=== PATIENT | female | born 1945 | race Two or more races ===

== ENCOUNTER 2024-01-27 17:22 | Inpatient (IN) | payer OTHER ==
[~2024-01-27] VITALS: Ht 149.9 cm; Wt 66.4 kg
--- NOTE | 2024-01-27 18:19 | ED.PDOC ---
History of Present Illness HPI Comments 78-year-old female brought in by EMS presents with a chief complaint of generalized weakness x4 days with associated diarrhea and hypotension. Patient states that she has been feeling weak to the point where she can not walk and can not sit up. Patient says she also has had diarrhea for the last 4 days rou ghly 4 times a day. Patient was hypotensive upon arrival at 103/46. Patient denies any falls or trauma prior to onset of symptoms. There are no other symptoms or modifying factors present at this time. 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 Family History Family History: Reviewed,noncontributory to illness Social History Smoker: Non-Smoker Alcohol: Denies ETOH Use Drugs: Denies Drug Use Lives In: Home Constitutional: reports: weakness; denies: chills, diaphoresis, fatigue, fever, malaise, sweats, others EENTM: denies: blurred vision, double vision, ear bleeding, ear discharge, ear drainage, ear pain, ear ringing, eye pain, eye redness, hearing loss, mouth pain, mouth swelling, nasal discharge, nose bleeding, nose congestion, nose pa in, photophobia, tearing, throat pain, throat swelling, voice changes, others Respiratory: denies: cough, hemoptysis, orthopnea, SOB at rest, shortness of breath, SOB with excertion, stridor, wheezing, others Cardiovascular: reports: others (Hypotension); denies: chest pain, dizzy spells, diaphoresis, Dyspnea on exertion, edema, irregular heart beat, left arm pain, lightheadedness, palpitations, PND, syncope Gastrointestinal: reports: diarrhea; denies: abdomen distended, abdominal pain, blood streaked bowels, constipated, dysphagia, difficulty swallowing, hematemesis, melena, nausea, poor appetite, poor fluid intake, rectal bleeding, rectal pain, vomiting, others Genitourinary: denies: abnormal vagina bleeding, burning, dyspareunia, dysuria, flank pain, frequency, hematuria, incontinence, pain, , vagina discharge, urgency, others Neurological: denies: dizziness, fainting, headache, left sided numbness, left sided weakness, numbness, paresthesia, pre-existing deficit, right sided numbness, right sided weakness, seizure, speech problems, tingling, tremors, weakness, others Musculoskeletal: denies: back pain, gout, joint pain, joint swelling, muscle pain, muscle stiffness, neck pain, others Integumetry: denies: bruises, change in color, change in hair/nails, dryness, laceration, lesions, lumps, rash, wounds, others Allergic/Immunocompromised: denies: Difficulty Healing, Frequent Infections, Hives, Itching, others Hematologic/Lymphatic: denies: anemia, blood clots, easy bleeding, easy bruising, swollen glands, others Endocrine: denies: excessive hunger, excessive sweating, excessive thirst, excessive urination, flushing, intolerance to cold, intolerance to heat, unexplained weight gain, unexplained weight loss, others Psychiatric: denies: anxiety, bipolar disorder, depression, hopeless, panic disorder, schizophrenia, sleepless, suicidal, others All Other Systems: Reviewed and Negative Physical Exam General Appearance: No Apparent Distress, Obese, Other (Chronic Ill Appearing ) HEENT: Normal ENT Inspection, Pharynx Normal, TMs Normal Neck: Full Range of Motion, Non-Tender, Normal, Normal Inspection Respiratory: Chest Non-Tender, Lungs Clear, No Accessory Muscle Use, No Respiratory Distress, Normal Breath Sounds Cardiovascular: No Edema, No JVD, No Murmur, No Gallop, Normal Peripheral Pulses, Regular Rate/Rhythm Breast Exam: Deferred Gastrointestinal: No Organomegaly, Non Tender, No Pulsatile Mass, Normal Bowel Sounds, Soft Genitalia: Deferred Pelvic: Deferred Rectal: Deferred Extremities: No calf tenderness, Normal capillary refill, Normal inspection, Normal range of motion, Non-tender, No pedal edema Musculoskeletal : Apperance: Normal Neurologic: Alert, spindle maker II-XII nml as Tested, No Motor Deficits, Normal Affect, Normal Mood, No Sensory Deficits Cerebellar Function: Normal Reflexes: Normal Skin: Dry, Normal Color, Warm Lymphatic: No Adenopathy Was a procedure done? Was a procedure done?: No Differential Dx Considerations may include: Electrolyte abnormality, ACS, pneumonia, viral syndrome, gastroenteritis, dehydration X-Ray, Labs, Meds, VS Vital Signs Date Time Temp Pulse Resp B/P (MAP) Pulse Ox O2 Delivery O2 Flow Rate FiO2 01/27/24 18:15 97.8 71 14 97/45 (62) 98 97.8 01/27/24 18:15 Room Air* 0 21 01/27/24 17:42 97.8 73 16 101/51 (68) 97 Lab Test 01/27/24 19:38 01/27/24 18:36 Range/Units Troponin I High Sensitivity Pending 27 </=34 ng/L White Blood Count 4.5 4.4-10.8 10^3/uL Red Blood Count 3.40 L 4.0-5.20 10^6/uL Hemoglobin 10.4 L 12.2-16.2 g/dL Hematocrit 31.4 L 36.0-46.0 % Mean Corpuscular Volume 92.4 80.0-100.0 fL Mean Corpuscular Hemoglobin 30.6 28.0-32.0 pg Mean Corpuscular Hemoglobin Concent 33.1 32.0-36.0 g/dL Red Cell Distribution Width 14.2 11.8-14.3 % Platelet Count 193 140-450 10^3/uL Mean Platelet Volume 8.3 6.9-10.8 fL Neutrophils (%) (Auto) 79.0 37.0-80.0 % Lymphocytes (%) (Auto) 9.3 L 10.0-50.0 % Monocytes (%) (Auto) 10.8 0.0-12.0 % Eosinophils (%) (Auto) 0.5 0.0-7.0 % Basophils (%) (Auto) 0.4 0.0-2.0 % Neutrophils # (Auto) 3.6 1.6-8.6 10 ^3/uL Lymphocytes # (Auto) 0.4 0.4-5.4 10 ^3/uL Monocytes # (Auto) 0.5 0-1.3 10 ^3/uL Eosinophils # (Auto) 0 0-0.8 10 ^3/uL Basophils # (Auto) 0 0-0.2 10 ^3/uL Nucleated Red Blood Cells 0.1 % Sodium Level 135 L 136-145 mmol/L Potassium Level 3.6 3.5-5.1 mmol/L Chloride Level 102 98-107 mmol/L Carbon Dioxide Level 24 20-31 mmol/L Anion Gap 9 5-15 Blood Urea Nitrogen 35 H 9-23 mg/dL Creatinine 1.02 0.550-1.02 mg/dL Glomerular Filtration Rate Calc 56 >90 mL/min BUN/Creatinine Ratio 34.3 H 10.0-20.0 Serum Glucose 100 74-106 mg/dL Calcium Level 9.2 8.7-10.4 mg/dL Current Medications Medications (Trade) Dose Ordered Sig/Liset Route Start Time Stop Time Status Last Admin Sodium Chloride 1,000 ml @ 1,000 mls/hr Q1H ONCE IV 01/27/24 18:30 01/27/24 19:29 DC 01/27/24 18:34 Time of 1ST Reevaluation: 18:44 Reevaluation 1ST: Unchanged Patient Education/Counseling: Diagnosis, Treatment, Prognosis Family Education/Counseling: No Family Present Departure 1 Departure Time of Disposition: 19:48 (Patient presented with acute shortness of breath concerning for acute on chronic COPD Exacerbation, Pneumonia, ACS, CHF, Pneumothorax. Less likely PE, Dissection. Patient does not appear septic at this time.Data: 1. I ordered and reviewed the result of at least 3 labs in cluding a CBC, BMP, and Troponin. 2. I independently interpreted the following tests: Chest X-ray shows a pneumonia.Risk:This patient has a high risk of morbidity due to further diagnostic testing or treatment and may suffer from respiratory or cardiac etiology . Workup reveals a pneumonia, patient will be started on antibiotics, admitted for further workup and possible expert cons ultation.) Impression: Primary Impression: Pneumonia Qualified Codes: J18.9 - Pneumonia, unspecified organism Additional Impressions: Diarrhea Qualified Codes: R19.7 - Diarrhea, unspecified Generalized weakness Disposition: ADMITTED INPATIENT Admit to: Med Surg Condition: Serious Critical Care Note Critical Care Time?: Yes Critical care comment: Acute shortness of breath Authorized and Performed by: Fani Bui MD Total critical care time: Approximately 33 minutes Due to a high probability of clinically significant, life threatening deterioration, the patient required my highest level of preparedness to intervene emergently and I personally spent this critical care time directly and personally managing the patient. This critical care time included obtaining a history; examining the patient; pulse oximetry; ordering and review of studies; arranging urgent treatment with development of a management plan; evaluation of patient's response to treatment; frequent reassessment; and, discussions with other providers. This critical care time was performed to assess and manage the high probability of imminent, life-threatening deterioration that could result in multi-organ failure. It was exclusive of separately billable procedures and treating other patients and teaching time. Please see my other sections and the rest of the note for further information on patient assessment and treatment. Stability Stability form required: No I personally scribed for FANI BUI MD ([email or web address]) on 01/27/24 at 18:19. Electronically submitted by Marco Perez ([email or web address]). FANI BUI MD Jan 27, 2024 18:19
[2024-01-27] MEDS: SODIUM CHLORIDE 0.9% 1,000 ML IV ONE (18:34)
--- NOTE | 2024-01-27 18:42 | DVH ---
CHEST RADIOGRAPH Indication: weakness Technique: Single frontal view of the chest was obtained Comparison: None FINDINGS: Lines and Tubes: None Lungs: Minimal bilateral lower lung zone opacities. Pleura: No effusion. No pneumothorax. Cardiomediastinal contours: Unremarkable Bones: No acute osseous abnormality. IMPRESSION: Bilateral lower lung zone atelectasis/pneumonia.
[2024-01-27 19:05] LABS: Chloride 102 mmol/L (98-107); Potassium 3.6 mmol/L (3.5-5.1)
[2024-01-27 19:06] LABS: Anion Gap 9 (5-15); Carbon Dioxide 24 mmol/L (20-31)
[2024-01-27 19:07] LABS: Calcium 9.2 mg/dL (8.7-10.4)
[2024-01-27 19:11] LABS: Glucose 100 mg/dL (74-106); Sodium 135 mmol/L (136-145)
[2024-01-27 19:12] LABS: BUN/Creatinine Ratio 34.3 (10.0-20.0)
[2024-01-27 19:14] LABS: Blood Urea Nitrogen 35 mg/dL (9-23)
[2024-01-27 19:23] LABS: Basophils # (auto) 0 10 ^3/uL (0-0.2); Basophils % (auto) 0.4 % (0.0-2.0); Eosinophils # (auto) 0 10 ^3/uL (0-0.8); Eosinophils % (auto) 0.5 % (0.0-7.0); Hematocrit 31.4 % (36.0-46.0); Hemoglobin 10.4 g/dL (12.2-16.2); Lymphocytes # (auto) 0.4 10 ^3/uL (0.4-5.4); Lymphocytes % (auto) 9.3 % (10.0-50.0); Mean Corpuscular Hemoglobin 30.6 pg (28.0-32.0); Mean Corpuscular Hgb Conc. 33.1 g/dL (32.0-36.0); Mean Corpuscular Volume 92.4 fL (80.0-100.0); Monocytes # (auto) 0.5 10 ^3/uL (0-1.3); Monocytes % (auto) 10.8 % (0.0-12.0); Neutrophils # (auto) 3.6 10 ^3/uL (1.6-8.6); Nucleated Red Blood Cells % 0.1 %; Platelet Count (auto) 193 10^3/uL (140-450); Red Cell Distribution Width 14.2 % (11.8-14.3); White Blood Cell 4.5 10^3/uL (4.4-10.8)
[2024-01-27 19:30] VITALS: PULSE 66; RESP 15
[2024-01-27] MEDS: AZITHROMYCIN 250 MG TAB PO ONE (20:39)
[2024-01-27] MEDS: VANCOMYCIN 1GM/250ML KIT 200 ML IV ONE (20:43)
--- NOTE | 2024-01-27 21:42 | DVH ---
Exam: CT CT AB PEL WITH IV CON ONLY History: abdominal pain Comparison Study: None available at time of dictation. TECHNIQUE: Multidetector CT of the abdomen and pelvis with contrast. Axial, coronal and sagittal mult iplanar reformats were obtained from the axial data set by the technologist. Radiation Dose Information: CT Dose: CTDI volume is 12.97 mGy. Dose-length product is 646 mGy*cm FINDINGS: Bibasilar atelectasis. Partially visualized heart is unremarkable. Status post cholecystectomy. Minimal intrahepatic biliary ductal dilatation. Mild dilatation of the common bile duct measuring up to 12 mm of the pancreatic head. Liver, spleen, and adrenal glands unre markable. Moderate atrophy of the pancreas. Bilateral renal cysts, largest on the right measuring up to 3.1 cm and largest on the left measuring up to 1.4 cm. Additional subcentimeter hypodense bilateral renal lesions are noted that are too small to characterize. Ureters and urinary bladder are unremarkable. Uterus and adnexa are unremarkable. Postsurgical changes of gastric bypass. Mild gastric wall thickening which may be due to inadequate d istention. Small bowel loops are unremarkable. Appendix is not definitely visualized. Small to modera te amount of fecal material within the colon. No evidence of intraperitoneal free air or free fluid. No evidence of aortic aneurysm or dissection. Moderate atherosclerotic calcification of the aorta an d bilateral iliacs. No significant lymphadenopathy. Partially visualized fluid collection of the left lateral hip and proximal femur subcutaneous fat magy suring about 5 x 7.3 cm in AP and transverse diameters and at least 8 cm in cranial caudal diameter w ith the distal end outside the [id number]. There appears to be prior postsurgical changes of the midline ventral abdomen. Minimal soft tissue e jessie. There is diffuse demineralization. No destructive osseous lesions are noted. IMPRESSION: Mild gastric wall thickening which may be due to inadequate distention with gastritis not excluded . Postsurgical changes of gastric bypass. Status post cholecystectomy with mild extrahepatic dilatation up to 12 mm of the pancreatic head mini mal intrahepatic biliary ductal dilatation. Bilateral renal cysts with additional subcentimeter hypodense bilateral renal lesions that are too sm all to characterize. Inadequately assessed fluid collection within the subcutaneous fat of the left hip and proximal femur with the distal end outside the [id number] measuring at least 5 x 7.3 x 8 cm
[2024-01-27] MEDS: CEFEPIME 2GM/50ML NS 50 ML IV ONE (22:21)
[2024-01-27] MEDS ORDERED: DOCUSATE SOD 100 MG CAP PO PRN (23:15)
[2024-01-27] MEDS ORDERED: ONDANSETRON HCL 4 MG/2 ML VIAL IV PRN (23:15)
[2024-01-27] MEDS ORDERED: NITROGLYCERIN 0.4 MG SL TAB SL PRN (23:15)
[2024-01-27] MEDS ORDERED: ACETAMINOPHEN 325 MG TAB PO PRN (23:15)
[2024-01-27] MEDS ORDERED: MORPHINE SULFATE INJ 2 MG/ml SYRG IV PRN (23:15)
[2024-01-28] MEDS: IOHEXOL 300 MG/ML 100ML BOTTLE IJ ONE (00:44)
[2024-01-28] MEDS: SODIUM CHLORIDE 0.9% 1,000 ML IV SCH (00:45)
[2024-01-28 01:29] LABS: COVID19 ANTIGEN SOFIA FIA NEGATIVE (NEGATIVE); Rapid Influenza A Negative (Negative); Rapid Influenza B Negative (Negative)
[2024-01-28] MEDS ORDERED: DEXTROSE (50%) 50ML SYRG IV PRN (01:45)
--- NOTE | 2024-01-28 02:18 | DVHHP2 ---
NILAM MCCRAY HEEL CUTTER 01/28/24 0218: History of Present Illness Reason for Visit: Generalized weakness History of Present Illness 78-year-old female with past medical history DM, hypertension, VT, bowel perforation repair dcd on 12/31/23 Presents with complaints of generalized weakness and diarrhea times four days. Patient states she is unable to sit up And having difficulty Walking. States she normally ambulates using her fww. On a arrival to the emergency department the patient is noted to be mildly hypotensive 101/51 and 97/45. Patient denies fevers, chills, recent sick contacts, shortness of breath, chest pain, palpitations, Nausea, vomiting, Abdominal pain, hematemesis, hematochezia, melena. Cardiovascular: VT TRAFFIC CONTROL SUPERVISOR: TIA Endocrine: Diabetes Smoke: No ALCOHOL: none Drugs: None Review of Systems Constitutional: Yes: Weakness, Malaise; No: Fever, Chills, Sweats, Other Eyes: No: Pain, Vision change, Conjunctivae inflammation, Eyelid inflammation, Other, Redness ENT: No: Ear pain, Ear discharge, Nose pain, Nose discharge, Nose congestion, Mouth pain, Mouth swelling, Throat pain, Throat swelling, Other Respiratory: No: Cough, Dry, Shortness of breath, SOB with excertion, Wheezing, Hemoptysis, Pleuritic Pain, Sputum, Wheezing, Other Cardiovascular: No: Chest Pain, Palpitations, Orthopnea, Paroxysmal Noc. Dyspnea, Edema, Lt Headedness, Other Gastrointestinal: Diarrhea; No: Nausea, Vomiting, Abdominal Pain, Constipation, Melena, Hematochezia, Other Genitourinary: No Dysuria, No Frequency, No Incontinence, No Hematuria, No Retention, No Other Musculoskeletal: No: other, neck pain, shoulder pain, arm pain, back pain, hand pain, leg pain, foot pain Skin: No: Rash, Lesions, Jaundice, Bruising, Other Neurological: No: Weakness, Numbness, Incoordination, Change in speech, Confusion, Seizures, Other Allergies: Coded Allergies: Ciprofloxacin (Verified Allergy, Unknown, 01/27/24) NSAIDs (Verified Allergy, Unknown, 01/27/24) Pregabalin (Verified Allergy, Unknown, 01/27/24) Medications Current Medications Medications Dose Ordered Sig/Liset Route Start Time Stop Time Status Last Admin Dose Admin Sodium Chloride 1,000 ml @ 75 mls/hr [id number] IV 12/15/24 23:15 01/28/24 12:34 01/28/24 00:45 75 MLS/HR Docusate Sodium 100 mg BIDPRN PRN PO 01/27/24 23:15 Acetaminophen 650 mg Q6HP PRN PO 01/27/24 23:15 Ondansetron HCl 4 mg Q4HP PRN IV 01/27/24 23:15 Enoxaparin Sodium 40 mg DAILY SC 01/28/24 10:00 Nitroglycerin 0.4 mg Q5MINP PRN SL 01/27/24 23:15 Morphine Sulfate 2 mg Q30M PRN IV 01/27/24 23:15 Diagnostic Test (Pha) 1 strip ACHS 01/28/24 07:00 Insulin Human Regular ACHS SC 01/28/24 07:00 Dextrose 50 ml UD PRN IV 01/28/24 01:45 Famotidine 20 mg DAILY IV 01/28/24 10:00 Exam Vital Signs Vital Signs Date Time Temp Pulse Resp B/P (MAP) Pulse Ox O2 Delivery O2 Flow Rate FiO2 01/28/24 00:00 68 01/27/24 21:00 14 119/47 (71) 100 01/27/24 19:30 97.5 97.5 01/27/24 18:15 Room Air* 0 21 General Appearance: Alert, Oriented X3, Cooperative, mild distress HEENT: Atraumatic, PERRLA, EOMI Respiratory: Clear to auscultation, Normal air movement Cardiovascular: Regular rate, Normal S1, Normal S2 Abdominal: Normal bowel sounds, No tenderness Extremities: No clubbing, No cyanosis, No edema Skin: No rashes, No breakdown Neuro: Normal gait, Normal speech Psych/Mental Status: Mental status NL, Mood NL Labs/Xrays Labs Test 01/28/24 00:54 01/27/24 21:48 01/27/24 19:40 01/27/24 18:36 Range/Units Influenza Type A Antigen Negative Negative Influenza Type B Antigen Negative Negative SARS-CoV-2 Antigen (Rapid) Negative NEGATIVE Troponin I High Sensitivity 25 </=34 ng/L Lactic Acid Level 0.6 0.4-2.0 mmol/L White Blood Count 4.5 4.4-10.8 10^3/uL Red Blood Count 3.40 L 4.0-5.20 10^6/uL Hemoglobin 10.4 L 12.2-16.2 g/dL Hematocrit 31.4 L 36.0-46.0 % Mean Corpuscular Volume 92.4 80.0-100.0 fL Mean Corpuscular Hemoglobin 30.6 28.0-32.0 pg Mean Corpuscular Hemoglobin Concent 33.1 32.0-36.0 g/dL Red Cell Distribution Width 14.2 11.8-14.3 % Platelet Count 193 140-450 10^3/uL Mean Platelet Volume 8.3 6.9-10.8 fL Neutrophils (%) (Auto) 79.0 37.0-80.0 % Lymphocytes (%) (Auto) 9.3 L 10.0-50.0 % Monocytes (%) (Auto) 10.8 0.0-12.0 % Eosinophils (%) (Auto) 0.5 0.0-7.0 % Basophils (%) (Auto) 0.4 0.0-2.0 % Neutrophils # (Auto) 3.6 1.6-8.6 10 ^3/uL Lymphocytes # (Auto) 0.4 0.4-5.4 10 ^3/uL Monocytes # (Auto) 0.5 0-1.3 10 ^3/uL Eosinophils # (Auto) 0 0-0.8 10 ^3/uL Basophils # (Auto) 0 0-0.2 10 ^3/uL Nucleated Red Blood Cells 0.1 % Sodium Level 135 L 136-145 mmol/L Potassium Level 3.6 3.5-5.1 mmol/L Chloride Level 102 98-107 mmol/L Carbon Dioxide Level 24 20-31 mmol/L Anion Gap 9 5-15 Blood Urea Nitrogen 35 H 9-23 mg/dL Creatinine 1.02 0.550-1.02 mg/dL Glomerular Filtration Rate Calc 56 >90 mL/min BUN/Creatinine Ratio 34.3 H 10.0-20.0 Serum Glucose 100 74-106 mg/dL Calcium Level 9.2 8.7-10.4 mg/dL Assessment/Plan Assessment/Plan Generalized weakness Diarrhea r/o CDIFF vs gastroenteritis S/P bowel perforation repair DM Bilateral atelectasis Plan Admit telemetry CDIFF, ova, parasite stool ordered UA pending As needed supplemental O2 to maintain O2 saturation greater than 93% Blood glucose check ACHS for optimal glycemic management IVF Orthostatic vital signs Physical therapy evaluation GI ppx pepcid / DVT ppx lovenox Plan discussed with: Patient My Orders Orders - NILAM MCCRAY NP Procedure Category Date Status Time Admit ADMIT 01/27/24 Transmitted 23:15 Code Status CODE 01/27/24 Transmitted 23:15 Vital Signs NICOLLE 01/27/24 In Process 23:15 Review Orders With NICOLLE 01/27/24 In Process Adm. 23:15 Encourage Activity As NICOLLE 01/27/24 In Process Tolerate 23:15 Sodium Chloride 0.9% PHA 01/27/24 In Process 23:15 Oxygen By Face Mask RT 01/27/24 Transmitted 23:15 Docusate Sodium PHA 01/27/24 In Process Capsule (Colace 23:15 Acetaminophen Tablet PHA 01/27/24 In Process (Tylenol Tablet) 23:15 Notify Of Changes NICOLLE 01/27/24 In Process From Base 23:15 Advance Directive NICOLLE 01/27/24 In Process 23:15 Basic Metabolic Panel LAB 01/28/24 Logged 05:00 Basic Metabolic Panel LAB 01/29/24 Verified 05:00 Basic Metabolic Panel LAB 01/30/24 Verified 05:00 Basic Metabolic Panel LAB 01/31/24 Verified 05:00 Basic Metabolic Panel LAB 02/01/24 Verified 05:00 Complete Blood Count LAB 01/28/24 Logged 05:00 Complete Blood Count LAB 01/29/24 Verified 05:00 Complete Blood Count LAB 01/30/24 Verified 05:00 Complete Blood Count LAB 01/31/24 Verified 05:00 Complete Blood Count LAB 02/01/24 Verified 05:00 Patient Condition ORDERS 01/27/24 Transmitted 23:15 Allergies NICOLLE 01/27/24 In Process 23:15 Ondansetron Hcl PHA 01/27/24 In Process (Zofran) 23:15 Enoxaparin Sodium PHA 01/28/24 In Process (Lovenox) 10:00 Sequential NICOLLE 01/27/24 In Process Compression Device Nitroglycerin PHA 01/27/24 In Process Sublingual (Ntrostat 23:15 Morphine Sulfate PHA 01/27/24 In Process Injection 23:15 Stat Ekg For Chest NICOLLE 01/27/24 In Process Pain 23:15 Notify Of Changes NICOLLE 01/27/24 In Process From Base 23:15 Transit Mix Operator For NICOLLE 01/27/24 In Process 24 Hours 23:15 Emergency Dysrhythmia NICOLLE 01/27/24 In Process Protocol 23:15 Rhythm Strips Once [facility] 01/27/24 In Process Every Shift 23:15 Oxygen By Nasal RT 01/27/24 Transmitted Cannula 23:15 Clostridium Difficile [facility] 01/27/24 Logged Toxin 23:15 Ova & Parasite Exam REGAN 01/27/24 Logged 23:15 Stool Wbc LAB 01/27/24 Logged 23:15 Pt Request For Service PT 01/27/24 Logged 23:15 Ct L Femur Wo Contrast CT 01/28/24 Logged 00:53 Glucose Blood PHA 01/28/24 In Process (Accu-Chek Comfort 07:00 Insulin R (Human) PHA 01/28/24 In Process (Insulin R) 07:00 Dextrose 50% Syringe PHA 01/28/24 In Process 01:45 Famotidine Injection PHA 01/28/24 In Process (Pepcid Injection) 10:00 Date of Service: Jan 28, 2024 Billing Provider: JOYCE CARDENAS MD Common Visit Codes: NOT BILLABLE JOYCE CARDENAS MD 01/28/24 1528: Review of Systems Allergies: Coded Allergies: Ciprofloxacin (Verified Allergy, Unknown, 01/27/24) NSAIDs (Verified Allergy, Unknown, 01/27/24) Pregabalin (Verified Allergy, Unknown, 01/27/24) Additional Comments Additional Comments Additional Comments Patient's chart is reviewed and seen and evaluated by me this afternoon. Patient evaluated and admitted by nurse practitioner ground water technician. I agree with the nurse practitioner's evaluation, documentation, assessment and care plan as outlined. NILAM MCCRAY NP Jan 28, 2024 02:18 JOYCE CARDENAS MD Jan 28, 2024 15:28
[2024-01-28 03:29] LABS: Urine Bacteria None Seen /hpf (None Seen); Urine WBC None Seen /hpf (0 - 5)
[2024-01-28 03:40] LABS: Urine Blood Negative /uL (Negative); Urine Clarity Clear (Clear); Urine Color Light-Yellow (Yellow); Urine Protein, UAD Negative (Negative); Urine Specific Gravity 1.043 (1.001-1.035); Urine Urobilinogen Normal (Negative); Urine pH 5.5 (5.0-9.0)
[2024-01-28] MEDS: HYDROcodone-ACET 5/325MG TAB PO ONE (04:14)
[2024-01-28 04:47] LABS: Basophils # (auto) 0 10 ^3/uL (0-0.2); Basophils % (auto) 0.6 % (0.0-2.0); Eosinophils # (auto) 0.1 10 ^3/uL (0-0.8); Eosinophils % (auto) 2.7 % (0.0-7.0); Hematocrit 32.6 % (36.0-46.0); Hemoglobin 10.6 g/dL (12.2-16.2); Lymphocytes # (auto) 0.5 10 ^3/uL (0.4-5.4); Lymphocytes % (auto) 13.4 % (10.0-50.0); Mean Corpuscular Hemoglobin 31.3 pg (28.0-32.0); Mean Corpuscular Hgb Conc. 32.5 g/dL (32.0-36.0); Mean Corpuscular Volume 96.3 fL (80.0-100.0); Monocytes # (auto) 0.6 10 ^3/uL (0-1.3); Monocytes % (auto) 15.3 % (0.0-12.0); Neutrophils # (auto) 2.7 10 ^3/uL (1.6-8.6); Nucleated Red Blood Cells % 0.7 %; Platelet Count (auto) 159 10^3/uL (140-450); Red Blood Cells 3.39 10^6/uL (4.0-5.20); Red Cell Distribution Width 14.6 % (11.8-14.3); White Blood Cell 3.9 10^3/uL (4.4-10.8)
[2024-01-28 05:00] LABS: Anion Gap 8 (5-15); Carbon Dioxide 21 mmol/L (20-31); Chloride 103 mmol/L (98-107); Potassium 3.6 mmol/L (3.5-5.1)
[2024-01-28 05:05] LABS: Glucose 85 mg/dL (74-106)
[2024-01-28 05:06] LABS: BUN/Creatinine Ratio 23.5 (10.0-20.0); Blood Urea Nitrogen 20 mg/dL (9-23)
[2024-01-28 05:23] LABS: Calcium 8.5 mg/dL (8.7-10.4); Sodium 132 mmol/L (136-145)
--- NOTE | 2024-01-28 06:31 | DVH ---
CLINICAL INDICATION: 78 years old, Female; fluid pocket left hip. TECHNIQUE: Noncontrast CT of the left femur was performed. Sagittal and coronal reformatted images ar e provided. COMPARISON: None CT Dose: CTDI volume is 16.68 mGy. Dose-length product is 1084.62 mGy*cm FINDINGS: No fracture or dislocation. Mild degenerative changes in the left hip and knee. There is a fluid collection which is partially imaged in the subcutaneous soft tissues of the left th igh measuring up to 11.5 cm in maximum craniocaudal dimension. Vascular calcifications in the thigh. IMPRESSION: 1. No fracture or dislocation. 2. 11.5 cm deep subcutaneous fluid collection which may reflect seroma. All CT scans at this medical facility are performed using dose modulation techniques as appropriate t o a performed exam including the following: Automated exposure control was utilized; adjustment of th e MA and/or KV according to patient size; and use of iterative reconstruction technique.
[2024-01-28] MEDS: InsuLIN REG 1unit/0.01ml Soln (100units/ml) SC SCH (07:00)
[2024-01-28] MEDS: ACCU-CHEK COMFORT CURVE STRIP VI SCH (07:04)
[2024-01-28] MEDS: ENOXAPARIN SOD 40 MG/0.4 ML SYRINGE SC SCH (09:33)
[2024-01-28] MEDS: FAMOTIDINE (10MG/ML) 2ML VL IV SCH (09:33)
[2024-01-28] MEDS: HYDROcodone-ACET 5/325MG TAB PO PRN (16:25)
[2024-01-28 21:00] VITALS: BP 142/78; PULSE 73; RESP 12; TEMP 97.8; O2SAT 95
[2024-01-29] VITALS (8 sets, daily range): BP systolic 147–175; BP diastolic 63–75; PULSE 65–76; RESP 13–20; TEMP 97.2–98.3; O2SAT 95–98
[2024-01-29] MEDS ORDERED: FURO20TA3 PO (05:43)
[2024-01-29] MEDS ORDERED: TRAZ-227 PO (05:43)
[2024-01-29] MEDS ORDERED: FESO8TAB PO (05:43)
[2024-01-29] MEDS ORDERED: PANT40TA2 PO (05:43)
[2024-01-29] MEDS ORDERED: CARV3.1240 PO (05:43)
[2024-01-29] MEDS ORDERED: FLUO-125 PO (05:43)
[2024-01-29] MEDS ORDERED: HYDR-2792 PO (05:43)
[2024-01-29] MEDS ORDERED: CLOP75TA70 PO (05:43)
[2024-01-29 06:27] LABS: Chloride 101 mmol/L (98-107); Potassium 3.6 mmol/L (3.5-5.1)
[2024-01-29 06:28] LABS: Anion Gap 9 (5-15); Carbon Dioxide 24 mmol/L (20-31)
[2024-01-29 06:31] LABS: Calcium 8.5 mg/dL (8.7-10.4); Sodium 134 mmol/L (136-145)
[2024-01-29 06:33] LABS: BUN/Creatinine Ratio 21.3 (10.0-20.0); Blood Urea Nitrogen 17 mg/dL (9-23); Glucose 83 mg/dL (74-106)
[2024-01-29 06:39] LABS: Basophils # (auto) 0 10 ^3/uL (0-0.2); Basophils % (auto) 0.4 % (0.0-2.0); Eosinophils # (auto) 0.1 10 ^3/uL (0-0.8); Eosinophils % (auto) 1.4 % (0.0-7.0); Hematocrit 32.1 % (36.0-46.0); Hemoglobin 10.7 g/dL (12.2-16.2); Lymphocytes # (auto) 0.5 10 ^3/uL (0.4-5.4); Lymphocytes % (auto) 12.5 % (10.0-50.0); Mean Corpuscular Hemoglobin 30.8 pg (28.0-32.0); Mean Corpuscular Hgb Conc. 33.3 g/dL (32.0-36.0); Mean Corpuscular Volume 92.4 fL (80.0-100.0); Monocytes # (auto) 0.5 10 ^3/uL (0-1.3); Monocytes % (auto) 11.3 % (0.0-12.0); Neutrophils # (auto) 3.1 10 ^3/uL (1.6-8.6); Neutrophils % (auto) 74.4 % (37.0-80.0); Platelet Count (auto) 169 10^3/uL (140-450); Red Blood Cells 3.48 10^6/uL (4.0-5.20); Red Cell Distribution Width 14.2 % (11.8-14.3); White Blood Cell 4.1 10^3/uL (4.4-10.8)
[2024-01-29] MEDS ORDERED: VANC250C4 PO (13:00)
[2024-01-29] MEDS ORDERED: CHL4PW PO (13:00)
--- NOTE | 2024-01-29 13:05 | DVHDS2 ---
Discharge Summary Date of Admission Jan 27, 2024 at 23:29 Date of Discharge: Jan 29, 2024 Admitting Diagnosis Loose stools with generalized weakness Labs/Diagnostic Data: Laboratory Results Test 01/29/24 06:06 01/29/24 05:49 01/29/24 03:00 01/28/24 03:11 POC Glucose 92 mg/dl (70-106) White Blood Count 4.1 10^3/uL (4.4-10.8) Red Blood Count 3.48 10^6/uL (4.0-5.20) Hemoglobin 10.7 g/dL (12.2-16.2) Hematocrit 32.1 % (36.0-46.0) Mean Corpuscular Volume 92.4 fL (80.0-100.0) Mean Corpuscular Hemoglobin 30.8 pg (28.0-32.0) Mean Corpuscular Hemoglobin Concent 33.3 g/dL (32.0-36.0) Red Cell Distribution Width 14.2 % (11.8-14.3) Platelet Count 169 10^3/uL (140-450) Mean Platelet Volume 8.0 fL (6.9-10.8) Neutrophils (%) (Auto) 74.4 % (37.0-80.0) Lymphocytes (%) (Auto) 12.5 % (10.0-50.0) Monocytes (%) (Auto) 11.3 % (0.0-12.0) Eosinophils (%) (Auto) 1.4 % (0.0-7.0) Basophils (%) (Auto) 0.4 % (0.0-2.0) Neutrophils # (Auto) 3.1 10 ^3/uL (1.6-8.6) Lymphocytes # (Auto) 0.5 10 ^3/uL (0.4-5.4) Monocytes # (Auto) 0.5 10 ^3/uL (0-1.3) Eosinophils # (Auto) 0.1 10 ^3/uL (0-0.8) Basophils # (Auto) 0 10 ^3/uL (0-0.2) Nucleated Red Blood Cells 0.0 % Sodium Level 134 mmol/L (136-145) Potassium Level 3.6 mmol/L (3.5-5.1) Chloride Level 101 mmol/L (98-107) Carbon Dioxide Level 24 mmol/L (20-31) Anion Gap 9 (5-15) Blood Urea Nitrogen 17 mg/dL (9-23) Creatinine 0.80 mg/dL (0.550-1.02) Glomerular Filtration Rate Calc 75 mL/min (>90) BUN/Creatinine Ratio 21.3 (10.0-20.0) Serum Glucose 83 mg/dL (74-106) Calcium Level 8.5 mg/dL (8.7-10.4) Stool for White Cells Few Urine Color Light-yellow (Yellow) Urine Clarity Clear (Clear) Urine pH 5.5 (5.0-9.0) Urine Specific [place] 1.043 (1.001-1.035) Urine Protein Negative (Negative) Urine Ketones Negative (Negative) Urine Blood Negative /uL (Negative) Urine Nitrite Negative (Negative) Urine Bilirubin Negative (Negative) Urine Urobilinogen Normal mg/dL (Negative) Urine Leukocyte Esterase Negative /uL (Negative) Urine RBC <1 /hpf (0 - 4) Urine WBC None seen /hpf (0 - 5) Urine Squamous Epithelial Cells Few /hpf (<5) Urine Bacteria None seen /hpf (None Seen) Urine Glucose Normal mg/dL (Normal) Test 01/28/24 00:54 01/27/24 21:48 01/27/24 19:40 Influenza Type A Antigen Negative (Negative) Influenza Type B Antigen Negative (Negative) SARS-CoV-2 Antigen (Rapid) Negative (NEGATIVE) Troponin I High Sensitivity 25 ng/L (</=34) Lactic Acid Level 0.6 mmol/L (0.4-2.0) Other Laboratory Tests 01/29/24 05:49 Brief Hx & Hospital Course: 78-year-old female with past medical history DM, hypertension, KS, bowel perforation repair dcd on 12/31/23 Presents with complaints of generalized weakness and diarrhea times four days. Patient states she is unable to sit up And having difficulty Walking. States she normally ambulates using her fww. On a arrival to the emergency department the patient is noted to be mildly hypotensive 101/51 and 97/45. Patient denies fevers, chills, recent sick contacts, shortness of breath, chest pain, palpitations, Nausea, vomiting, Abdominal pain, hematemesis, hematochezia, melena. He is admitted and underwent evaluation for her diarrhea. She was ruled out for any C diff colitis any other infection. patient started on Questran to bulk the stool seemed to improve her diarrhea. Is feeling better and requesting to be discharged home. I have advised the patient to continue the Questran and have outpatient follow up with her primary care physician if she continued to have follow her diarrhea and possible referral to front desk admin for further evaluation management. Patient verbalized understanding of this, verbalized understanding of her discharge medications, discharge instructions and agree with follow-up plan of care as mentioned. Condition at Discharge: Stable Final Diagnosis/Problems List Diarrhea, general physical deconditioning Discharge Disposition: Home Discharge Instruct/Medications Diet: Consistent carbohydrate, Cardiac 2g Na,low cholest Activity: No Restrictions, As Tolerated Follow Up/Referral: Your primary care doctor next week and Facial surgeon in 2-3 weeks. Medications: As prescribed and home medications per discharge medication list New Medications: Cholestyramine (Questran Powder) 4 Gm Pw 4 GM PO BIDAC, #10 POW Vancomycin HCl (Vancomycin HCl) 250 Mg Cap 250 MG PO TID, #14 CAP Continued Medications: Carvedilol (Carvedilol) 3.125 Mg Tab 3.125 MG PO BID for 30 Days, MG Clopidogrel Bisulfate (Clopidogrel) 75 Mg Tab 75 MG PO DAILY for 30 Days, MG Fesoterodine Fumarate (Toviaz) 8 Mg Tab 8 MG PO DAILY, TAB Fluoxetine Hcl (Fluoxetine Hcl) 20 Mg Cap 40 MG PO BID for 30 Days, MG Furosemide (Furosemide) 20 Mg Tab 20 MG PO DAILY for 30 Days, MG Hydralazine Hcl (Hydralazine Hcl) 10 Mg Tab 10 MG PO BID for 30 Days, MG Pantoprazole Sodium Sesquihydr (Protonix) 40 Mg Tab 40 MG PO DAILY, #30 TAB Trazodone Hcl (Trazodone Hcl) 50 Mg Tab 50 MG PO HS, MG Discharge Statement: "Patient was advised to return to the ER or call 911 if any headaches, dizziness, shortness of breath, chest pain, abdominal pain, bleeding, fevers, or worsening of medical condition. Patient was counseled about treatment plan, medications, possible side effects, patientverbalized understanding. All questions were answered to the best of my ability. This discharge took greater then 30 minutes in planning, reviewing documentation, counseling the patient, and discussing with other team members." ASSESSMENT ASSESSMENT Assessment JOYCE CARDENAS MD Jan 29, 2024 13:05
[2024-01-30 01:00] VITALS: BP 137/74; PULSE 72; RESP 16; TEMP 97.8; O2SAT 97
[2024-01-30 05:00] VITALS: BP 161/81; PULSE 73; RESP 19; TEMP 97.2; O2SAT 100
[2024-01-30 09:00] VITALS: BP 156/89; PULSE 73; RESP 17; TEMP 97.4; O2SAT 96
[2024-01-30] MEDS ORDERED: LIDOCAINE 2%HCL (LOCAL ANESTH.) INJ 10ml MDV ONE (09:34)
[2024-01-31] MEDS ORDERED: TAMIF30 PO (15:28)
== END 2024-01-30 09:50 | disposition home health service (06) | DRG 373 ==
LOC: ER 17:22 → EDBD 17:22 → TELE 23:29 → OVERFLOW 01-28 15:25 → WEST WING 01-28 19:13
PROVIDERS: ADMIT Nurse Practitioner Family; ATTEND Hospitalist
DX: A04.9 Bacterial intestinal infection, unspecified (principal); I10 Essential (primary) hypertension; I95.9 Hypotension, unspecified; E11.9 Type 2 diabetes mellitus without complications; Z88.1 Allergy status to other antibiotic agents; Z79.899 Other long term (current) drug therapy; Z79.4 Long term (current) use of insulin
CPT/HCPCS: 36415; 71045; 73700; 74177; 80048; 81001; 82962; 83605; 84484; 85025; 85048; 87040; 87081; 87177; 87426; 87493; 87804; 97163; 99291; G0378; J0692; J2003; J3490

== ENCOUNTER 2024-01-31 12:39 | Emergency (ER) | payer OTHER ==
[~2024-01-31] VITALS: Ht 149.9 cm; Wt 73.0 kg
[~2024-01-31 12:39] MED LIST: CARV3.1240 PO; CHL4PW PO; CLOP75TA70 PO; FESO8TAB PO; FLUO-125 PO; FURO20TA3 PO; HYDR-2792 PO; PANT40TA2 PO; TRAZ-227 PO; VANC250C4 PO
--- NOTE | 2024-01-31 12:53 | ED.PDOC ---
History of Present Illness HPI Comments 78F BIBA w/ no prior Hx associated w/ the c/c of generalized weakness. EMS reports that the pt was admitted at [facility] in 4 days and was discharged 2 days ago w/ the diagnoses being dehydration. EMS state that the pt had been coughing for 2 weeks w/ SOB and bronchi on both lungs. Pt was given albuterol en rout to the ED. Pt was picked up from an assisted living and its baseline is A/Ox4. PMHx of HTN, CVA and NM x6 years. SHx of Gastric Bypass Sx, Cataract Sx and Appendectomy. Denies chills, fever, N/V/D, SOB, CP or other associated symptom's, modifiers, or recent injuries or sick contact at this time. Time Seen by MD: 12:45 Primary Care Provider: liza Reviewed Notes: Nurses Notes, Information Coder Notes, Medications, Allergies Allergies: Coded Allergies: Ciprofloxacin (Verified Allergy, Unknown, 01/27/24) NSAIDs (Verified Allergy, Unknown, 01/27/24) Pregabalin (Verified Allergy, Unknown, 01/27/24) Home Meds Active Scripts Vancomycin HCl (Vancomycin HCl) 250 Mg Cap, 250 MG PO TID, #14 CAP Prov:JOYCE CARDENAS MD 01/29/24 Cholestyramine (QUESTRAN POWDER) 4 Gm Pw, 4 GM PO BIDAC, #10 POW Prov:JOYCE CARDENAS MD 01/29/24 Reported Medications Fesoterodine Fumarate (Toviaz) 8 Mg Tab, 8 MG PO DAILY, TAB 01/29/24 Fluoxetine Hcl (Fluoxetine Hcl) 20 Mg Cap, 40 MG PO BID for 30 Days, MG 01/29/24 Furosemide (Furosemide) 20 Mg Tab, 20 MG PO DAILY for 30 Days, MG 01/29/24 Carvedilol (Carvedilol) 3.125 Mg Tab, 3.125 MG PO BID for 30 Days, MG 01/29/24 Hydralazine Hcl (Hydralazine Hcl) 10 Mg Tab, 10 MG PO BID for 30 Days, MG 01/29/24 Pantoprazole Sodium Sesquihydr (Protonix) 40 Mg Tab, 40 MG PO DAILY, #30 TAB 01/29/24 Trazodone Hcl (Trazodone Hcl) 50 Mg Tab, 50 MG PO HS, MG 01/29/24 Clopidogrel Bisulfate (CLOPIDOGREL) 75 Mg Tab, 75 MG PO DAILY for 30 Days, MG 01/29/24 Information Source: Patient, Emergency Med Personnel Mode of Arrival: EMS Severity: Moderate Timing: Weeks Duration: Since onset Prehospital treatment: None Past Medical History PAST MEDICAL HISTORY: CVA, HTN, NM (x6 years) Surgical History: Appendectomy Surgical History (Other): Gastric Bypass Sx, Cataract Sx [employer] OFFICER 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 Family History Family History: Reviewed,noncontributory to illness Social History Smoker: Non-Smoker Alcohol: Denies ETOH Use Drugs: Denies Drug Use Lives In: Home Constitutional: reports: weakness; denies: chills, diaphoresis, fatigue, fever, malaise, sweats, others EENTM: denies: blurred vision, double vision, ear bleeding, ear discharge, ear drainage, ear pain, ear ringing, eye pain, eye redness, hearing loss, mouth pain, mouth swelling, nasal discharge, nose bleeding, nose congestion, nose pain, photophobia, tearing, throat pain, throat swelling, voice changes, others Respiratory: reports: cough, shortness of breath; denies: hemoptysis, orthopnea, SOB at rest, SOB with excertion, stridor, wheezing, others Cardiovascular: denies: chest pain, dizzy spells, diaphoresis, Dyspnea on exertion, edema, irregular heart beat, left arm pain, lightheadedness, palpitations, PND, syncope, others Gastrointestinal: denies: abdomen distended, abdominal pain, blood streaked bowels, constipated, diarrhea, dysphagia, difficulty swallowing, hematemesis, melena, nausea, poor appetite, poor fluid intake, rectal bleeding, rectal pain, vomiting, others Genitourinary: denies: abnormal vagina bleeding, burning, dyspareunia, dysuria, flank pain, frequency, hematuria, incontinence, pain, , vagina discharge, urgency, others Neurological: denies: dizziness, fainting, headache, left sided numbness, left sided weakness, numbness, paresthesia, pre-existing deficit, right sided numbness, right sided weakness, seizure, speech problems, tingling, tremors, weakness, others Musculoskeletal: denies: back pain, gout, joint pain, joint swelling, muscle pain, muscle stiffness, neck pain, others Integumetry: denies: bruises, change in color, change in hair/nails, dryness, laceration, lesions, lumps, rash, wounds, others Allergic/Immunocompromised: denies: Difficulty Healing, Frequent Infections, Hives, Itching, others Hematologic/Lymphatic: denies: anemia, blood clots, easy bleeding, easy bruising, swollen glands, others Endocrine: denies: excessive hunger, excessive sweating, excessive thirst, excessive urination, flushing, intolerance to cold, intolerance to heat, unexplained weight gain, unexplained weight loss, others Psychiatric: denies: anxiety, bipolar disorder, depression, hopeless, panic disorder, schizophrenia, sleepless, suicidal, others All Other Systems: Reviewed and Negative Physical Exam General Appearance: Mild Distress HEENT: Normal ENT Inspection, Pharynx Normal, TMs Normal Neck: Full Range of Motion, Non-Tender, Normal, Normal Inspection Respiratory: Chest Non-Tender, Lungs Clear, No Accessory Muscle Use, No Respiratory Distress, Normal Breath Sounds Cardiovascular: No Edema, No JVD, No Murmur, No Gallop, Normal Peripheral Pulses, Regular Rate/Rhythm Breast Exam: Deferred Gastrointestinal: No Organomegaly, Non Tender, No Pulsatile Mass, Normal Bowel Sounds, Soft Genitalia: Deferred Pelvic: Deferred Rectal: Deferred Extremities: No calf tenderness, Normal capillary refill, No pedal edema Musculoskeletal : Apperance: Normal Neurologic: Alert, silicator II-XII nml as Tested, No Motor Deficits, Normal Affect, Normal Mood, No Sensory Deficits Cerebellar Function: Normal Reflexes: Normal Skin: Dry, Normal Color, Warm Lymphatic: No Adenopathy Was a procedure done? Was a procedure done?: No Differential Dx Considerations may include: Dehydration, UTI, influenza a X-Ray, Labs, Meds, VS Vital Signs Date Time Temp Pulse Resp B/P (MAP) Pulse Ox O2 Delivery O2 Flow Rate FiO2 01/31/24 12:48 97.8 93 28 112/53 (72) 97 01/31/24 12:48 97.8 93 28 112/53 (72) 97 97.8 Lab Test 01/31/24 14:21 01/31/24 13:26 Range/Units Influenza Type A Antigen Positive Negative Influenza Type B Antigen Negative Negative SARS-CoV-2 Antigen (Rapid) Negative NEGATIVE White Blood Count 5.8 # 4.4-10.8 10^3/uL Red Blood Count 3.91 L 4.0-5.20 10^6/uL Hemoglobin 12.0 L 12.2-16.2 g/dL Hematocrit 36.3 # 36.0-46.0 % Mean Corpuscular Volume 92.7 80.0-100.0 fL Mean Corpuscular Hemoglobin 30.6 28.0-32.0 pg Mean Corpuscular Hemoglobin Concent 32.9 32.0-36.0 g/dL Red Cell Distribution Width 14.4 H 11.8-14.3 % Platelet Count 179 140-450 10^3/uL Mean Platelet Volume 7.8 6.9-10.8 fL Neutrophils (%) (Auto) 74.7 37.0-80.0 % Lymphocytes (%) (Auto) 16.7 10.0-50.0 % Monocytes (%) (Auto) 7.7 0.0-12.0 % Eosinophils (%) (Auto) 0.7 0.0-7.0 % Basophils (%) (Auto) 0.2 0.0-2.0 % Neutrophils # (Auto) 4.3 1.6-8.6 10 ^3/uL Lymphocytes # (Auto) 1.0 0.4-5.4 10 ^3/uL Monocytes # (Auto) 0.4 0-1.3 10 ^3/uL Eosinophils # (Auto) 0 0-0.8 10 ^3/uL Basophils # (Auto) 0 0-0.2 10 ^3/uL Nucleated Red Blood Cells 0.1 % Sodium Level 135 L 136-145 mmol/L Potassium Level 3.7 3.5-5.1 mmol/L Chloride Level 102 98-107 mmol/L Carbon Dioxide Level 24 20-31 mmol/L Anion Gap 9 5-15 Blood Urea Nitrogen 19 9-23 mg/dL Creatinine 0.96 0.550-1.02 mg/dL Glomerular Filtration Rate Calc 60 >90 mL/min BUN/Creatinine Ratio 19.8 10.0-20.0 Serum Glucose 108 H 74-106 mg/dL Calcium Level 8.9 8.7-10.4 mg/dL No sign of any abnormalities The CBC is within normal limits The influenza a is positive Influenza B and COVID test is negative The patient is being discharged to the facility We spoke with the hospitalist and he is going to be sending Tamiflu for the patient to be started on The patient is being discharged Images Reviewed?: Images reviewed and evaluated by me Time of 1ST Reevaluation: 13:15 Reevaluation 1ST: Unchanged Patient Education/Counseling: Diagnosis, Treatment, Prognosis Family Education/Counseling: No Family Present Departure 1 Departure Time of Disposition: 15:29 Impression: Primary Impression: Generalized weakness Additional Impression: Influenza A Disposition: 01 HOME / SELF CARE / HOMELESS Condition: Fair Discharged With: Self Critical Care Note Critical Care Time?: No Stability Stability form required: No Heart Score Heart Score: Heart Score Response (Comments) Value History N/A 0 EKG N/A 0 Age N/A 0 Risk Factors N/A 0 Troponin N/A 0 Total 0 I personally scribed for UNA CLAYTON MD ([email or web address]) on 01/31/24 at 12:53. Electronically submitted by Cedrick Samson ([email or web address]). UNA CLAYTON MD Jan 31, 2024 12:53
[2024-01-31] MEDS: SODIUM CHLORIDE 0.9% 500 ML IV ONE (13:06)
--- NOTE | 2024-01-31 13:06 | DVH ---
EXAM: XY CHEST PORTABLE Indication: sob Technique: Single frontal view of the chest was obtained Comparison: XY CHEST PORTABLE on DOS: 01/27/24 FINDINGS: Lines and Tubes: None Lungs: No focal consolidation. Pleura: No effusion. No pneumothorax. Cardiomediastinal contours: Unremarkable Bones: No acute osseous abnormality. IMPRESSION: No acute cardiopulmonary disease.
[2024-01-31 14:09] LABS: Basophils # (auto) 0 10 ^3/uL (0-0.2); Basophils % (auto) 0.2 % (0.0-2.0); Eosinophils # (auto) 0 10 ^3/uL (0-0.8); Eosinophils % (auto) 0.7 % (0.0-7.0); Hematocrit 36.3 % (36.0-46.0); Lymphocytes % (auto) 16.7 % (10.0-50.0); Mean Corpuscular Hemoglobin 30.6 pg (28.0-32.0); Mean Corpuscular Hgb Conc. 32.9 g/dL (32.0-36.0); Mean Corpuscular Volume 92.7 fL (80.0-100.0); Monocytes # (auto) 0.4 10 ^3/uL (0-1.3); Monocytes % (auto) 7.7 % (0.0-12.0); Neutrophils # (auto) 4.3 10 ^3/uL (1.6-8.6); Neutrophils % (auto) 74.7 % (37.0-80.0); Nucleated Red Blood Cells % 0.1 %; Platelet Count (auto) 179 10^3/uL (140-450); Red Blood Cells 3.91 10^6/uL (4.0-5.20); Red Cell Distribution Width 14.4 % (11.8-14.3); White Blood Cell 5.8 10^3/uL (4.4-10.8)
[2024-01-31 14:22] LABS: Anion Gap 9 (5-15); Carbon Dioxide 24 mmol/L (20-31); Chloride 102 mmol/L (98-107); Potassium 3.7 mmol/L (3.5-5.1)
[2024-01-31 14:23] LABS: Calcium 8.9 mg/dL (8.7-10.4); Sodium 135 mmol/L (136-145)
[2024-01-31 14:28] LABS: BUN/Creatinine Ratio 19.8 (10.0-20.0); Blood Urea Nitrogen 19 mg/dL (9-23)
[2024-01-31 14:31] LABS: Glucose 108 mg/dL (74-106)
[2024-01-31 15:03] LABS: COVID19 ANTIGEN SOFIA FIA NEGATIVE (NEGATIVE)
[2024-01-31 15:04] LABS: Rapid Influenza B Negative (Negative)
[2024-01-31 15:06] LABS: Rapid Influenza A Positive (Negative)
[2024-01-31] MEDS ORDERED: TAMIF30 PO (15:28)
--- NOTE | 2024-01-31 15:30 | DVHINCON2 ---
Date of service: Jan 31, 2024 Reason for Consultation Generalized weakness History of Present Illness 78F BIBA w/ no prior Hx associated w/ the c/c of generalized weakness. EMS reports that the pt was admitted at [facility] in 4 days and was discharged 2 days ago w/ the diagnoses being dehydration. EMS state that the pt had been coughing for 2 weeks w/ SOB and bronchi on both lungs. Pt was given albuterol en rout to the ED. Pt was picked up from an assisted living and its baseline is A/Ox4. PMHx of HTN, CVA and ME x6 years. SHx of Gastric Bypass Sx, Cataract Sx and Appende ctomy. Denies chills, fever, N/V/D, SOB, CP or other associated symptom's, modifiers, or recent injuries or sick contact at this time. Past Medical History CVA, HTN, ME (x6 years) Past Surgical History Appendectomy Family History: Cerebrovascular accident (CVA) G8 FATHER, Allergies: Coded Allergies: Ciprofloxacin (Verified Allergy, Unknown, 01/27/24) NSAIDs (Verified Allergy, Unknown, 01/27/24) Pregabalin (Verified Allergy, Unknown, 01/27/24) Home Meds Active Scripts Oseltamivir Phosphate (Tamiflu) 30 Mg Cp, 1 CAP PO BID, #10 CAP Prov:JOYCE CARDENAS MD 01/31/24 Vancomycin HCl (Vancomycin HCl) 250 Mg Cap, 250 MG PO TID, #14 CAP Prov:JOYCE CARDENAS MD 01/29/24 Cholestyramine (QUESTRAN POWDER) 4 Gm Pw, 4 GM PO BIDAC, #10 POW Prov:JOYCE CARDENAS MD 01/29/24 Reported Medications Fesoterodine Fumarate (Toviaz) 8 Mg Tab, 8 MG PO DAILY, TAB 01/29/24 Fluoxetine Hcl (Fluoxetine Hcl) 20 Mg Cap, 40 MG PO BID for 30 Days, MG 01/29/24 Furosemide (Furosemide) 20 Mg Tab, 20 MG PO DAILY for 30 Days, MG 01/29/24 Carvedilol (Carvedilol) 3.125 Mg Tab, 3.125 MG PO BID for 30 Days, MG 01/29/24 Hydralazine Hcl (Hydralazine Hcl) 10 Mg Tab, 10 MG PO BID for 30 Days, MG 01/29/24 Pantoprazole Sodium Sesquihydr (Protonix) 40 Mg Tab, 40 MG PO DAILY, #30 TAB 01/29/24 Trazodone Hcl (Trazodone Hcl) 50 Mg Tab, 50 MG PO HS, MG 01/29/24 Clopidogrel Bisulfate (CLOPIDOGREL) 75 Mg Tab, 75 MG PO DAILY for 30 Days, MG 01/29/24 Review of Systems Other review of systems reviewed is normal. Vital Signs Vital Signs Date Time Temp Pulse Resp B/P (MAP) Pulse Ox O2 Delivery O2 Flow Rate FiO2 01/31/24 12:48 97.8 93 28 112/53 (72) 97 Labs/Diagnostic Data Labs Test 01/31/24 14:21 01/31/24 13:26 Range/Units Influenza Type A Antigen Positive Negative Influenza Type B Antigen Negative Negative SARS-CoV-2 Antigen (Rapid) Negative NEGATIVE White Blood Count 5.8 # 4.4-10.8 10^3/uL Red Blood Count 3.91 L 4.0-5.20 10^6/uL Hemoglobin 12.0 L 12.2-16.2 g/dL Hematocrit 36.3 # 36.0-46.0 % Mean Corpuscular Volume 92.7 80.0-100.0 fL Mean Corpuscular Hemoglobin 30.6 28.0-32.0 pg Mean Corpuscular Hemoglobin Concent 32.9 32.0-36.0 g/dL Red Cell Distribution Width 14.4 H 11.8-14.3 % Platelet Count 179 140-450 10^3/uL Mean Platelet Volume 7.8 6.9-10.8 fL Neutrophils (%) (Auto) 74.7 37.0-80.0 % Lymphocytes (%) (Auto) 16.7 10.0-50.0 % Monocytes (%) (Auto) 7.7 0.0-12.0 % Eosinophils (%) (Auto) 0.7 0.0-7.0 % Basophils (%) (Auto) 0.2 0.0-2.0 % Neutrophils # (Auto) 4.3 1.6-8.6 10 ^3/uL Lymphocytes # (Auto) 1.0 0.4-5.4 10 ^3/uL Monocytes # (Auto) 0.4 0-1.3 10 ^3/uL Eosinophils # (Auto) 0 0-0.8 10 ^3/uL Basophils # (Auto) 0 0-0.2 10 ^3/uL Nucleated Red Blood Cells 0.1 % Sodium Level 135 L 136-145 mmol/L Potassium Level 3.7 3.5-5.1 mmol/L Chloride Level 102 98-107 mmol/L Carbon Dioxide Level 24 20-31 mmol/L Anion Gap 9 5-15 Blood Urea Nitrogen 19 9-23 mg/dL Creatinine 0.96 0.550-1.02 mg/dL Glomerular Filtration Rate Calc 60 >90 mL/min BUN/Creatinine Ratio 19.8 10.0-20.0 Serum Glucose 108 H 74-106 mg/dL Calcium Level 8.9 8.7-10.4 mg/dL Assessment Patient's chart is reviewed and discussed with the ER physician. Patient is recently discharged by me. This time patient's workup in the ER is normal. Therefore I have ordered influenza A/B which came back positive for influenza A. Thorofare her weakness symptoms could be possibly related to infection. Therefore she was started on Tamiflu. Otherwise given patient's workup is normal she already has a home health and physical tract arranged it is felt she could be safely discharged back with the Tamiflu and have close outpatient follow up with primary care physician. I have also talked to on-call [facility]al case records supervisor for safety evaluation at home and close follow up. Therefore patient is being discharged in a stable condition from ER. Problems(with codes): (1) Influenza A (2) Generalized weakness Plan discussed with: Other JOYCE CARDENAS MD Jan 31, 2024 15:30
[2024-01-31] MEDS: OSELTAMIVIR 75 MG CAP PO ONE (15:49)
[2024-01-31 15:53] VITALS: BP 106/54; TEMP 97.4
[2024-01-31 16:06] VITALS: PULSE 102; RESP 18; O2SAT 98
== END 2024-01-31 16:24 | disposition home or self-care (01) ==
LOC: EDBD 12:39 → ER 12:39
DX: J10.1 Influenza due to other identified influenza virus with other respiratory manifestations (principal); R53.1 Weakness; I10 Essential (primary) hypertension; I25.2 Old myocardial infarction; Z86.73 Personal history of transient ischemic attack (TIA), and cerebral infarction without residual deficits; Z90.49 Acquired absence of other specified parts of digestive tract; Z98.84 Bariatric surgery status; Z98.890 Other specified postprocedural states; Z88.1 Allergy status to other antibiotic agents; Z88.6 Allergy status to analgesic agent; Z79.02 Long term (current) use of antithrombotics/antiplatelets; Z79.899 Other long term (current) drug therapy; Z20.822 Contact with and (suspected) exposure to COVID-19
CPT/HCPCS: 36415; 71045; 80048; 85025; 87426; 87804